=== PATIENT | female | born 2005 | race Asian ===

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

== ENCOUNTER 2024-07-31 11:13 | Emergency (ER) | payer OTHER, SELFPAY ==
[2024-07-31 11:17] VITALS: BP 107/65; PULSE 75; RESP 16; TEMP 36.9; O2SAT 98; BMI 23.6
--- NOTE | 2024-07-31 12:48 | ED.BACK ---
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 She is feeling it in the lower lumbar area, is feeling it in the right buttock area but is not going down her leg. She has no bowel or bladder loss of control. No weakness in her legs at this time, no numbness tingling. Over mid term break she did do camping in [place], went sledding. She was carrying a heavy pack which she thinks aggravated her back. There was no trauma. She has had no fevers. She was on a study abroad last July where she was diagnosed with herniated lumbar disc in career. She thinks they may be did both x-rays and lumbar spine. They told her to not carry a heavy backpack, stated that it would heal with time. She did get some pain medicine and slowly improved. She notes pain is problematic with sitting prolonged in class. She has not taken anything, sleep is okay. She states that there is no chance for . Related Data Previous Rx's ?Medication ?Instructions ?Recorded prednisone 20 mg tablet 20 mg PO BID #10 tabs 07/31/24 Allergies Allergy/AdvReac Type Severity Reaction Status Date / Time No Known Drug Allergies Allergy Verified 07/31/24 11:21 Review of Systems Narrative: As per HPI. PFSH PFS Social History Smoking Status: Never smoker Do you use any of these nicotine containing products: None Second hand tobacco smoke exposure: No How often do you have a drink containing alcohol: never How often do you have six or more drinks on one occasion: Never AUDIT-C Alcohol total score: 0 Non-prescribed substance use: denies use service: No Exam Const: Vital Signs, click to edit/add: Vital Signs - 24 hr 07/31/24 11:17 Temperature 98.4 F Pulse Rate [Pulse Oximeter] 75 Respiratory Rate 16 Blood Pressure [Ri ght Upper Arm] 107/65 Pulse Oximetry 98 Oxygen Delivery Me thod Room Air This 18-year-old female is alert, interactive, no apparent distress. She is seeing exam room for. She has no midline tenderness over back, no appreciable rash. There is some bilateral lower lumbar paraspinous tenderness but feel no masses feel no abnormality other than the discomfort. She has some right sciatic notch tenderness in the gluteus. Strength is 5/5 and symmetric throughout the hips, knees, ankles and toes. She has 1 to 2+ DTRs patellas, could not get Achilles. Strength and sensation is normal and symmetrical throughout both lower extremities. Negative straight leg raising. Gait is normal. Documenting provider has reviewed patient's vital signs: yes Course Course ED Course: Have reviewed with patient relative rest. This certainly sounds like a low back issue, she does not have diagnostic features for sciatica. Presumably she is just aggravated prior injury. We discussed relative rest, trial of prednisone for anti-inflammatory effect. She is declining any muscle relaxant. Have discussed with her my recommendation for physical therapy, she would like to try back exercises, she did not do any before. I will give her some handouts with exercises, she is instructed to do those that are not aggravating her back more. She can graduate into more of these as she feels better. We discussed warning signs and symptoms for radiculopathy, need to return for evaluation and consideration of MRI. At this point, MRI is not indicated and course of conservative management should be tried. Vital Signs Vital signs: Initial Vital Signs Temperature 98.4 F 07/31/24 11:17 Temperature Source Temporal Artery Scan 07/31/24 11:17 Pulse Rate 75 07/31/24 11:17 Respiratory Rate 16 07/31/24 11:17 Blood Pressure 107/65 07/31/24 11:17 Blood Pressure Mean 79 07/31/24 11:17 Blood Pressure Position Sitting 07/31/24 11:17 Pulse Oximetry 98 07/31/24 11:17 Oxygen Delivery Method Room Air 07/31/24 11:17 Vital Signs Temperature 98.4 F 07/31/24 11:17 Pulse Rate 75 07/31/24 11:17 Respiratory Rate 16 07/31/24 11:17 Blood Pressure 107/65 07/31/24 11:17 Pulse Oximetry 98 07/31/24 11:17 Oxygen Delivery Method Room Air 07/31/24 11:17 Temperature 98.4 F 07/31/24 11:17 Pulse Rate 75 07/31/24 11:17 Respiratory Rate 16 07/31/24 11:17 Blood Pressure 107/65 07/31/24 11:17 Pulse Oximetry 98 07/31/24 11:17 Oxygen Delivery Method Room Air 07/31/24 11:17 Discharge Plan Discharge Clinical Impression: Strain of lumbar region Patient Disposition: Home, Self-Care Condition: Stable Instructions: Low Back Strain (ED), Lower Back Exercises (ED), Core Strengthening Exercises (ED) Additional Instructions: Id is for relative rest, sitting can be the hardest on the spine. Do not recommend any significant position for any length of time right now. Try a to even stand up in class for few moments after sitting for a while. Can use ice or heat on your low back, use whichever works better. Prednisone has been prescribed which is an anti-inflammatory, take with food to helped protect your stomach from irritation from the medicine. Can still use Tylenol and ibuprofen per bottle directions if needed for pain management. If you develop loss of bowel or bladder control, developed motor weakness in your leg(s), do recommend re-evaluation. I have provided exercises to try, can start these but utilize the ones that do not increase your pain. May want to consider referral to physical therapy if you have ongoing issues. Activity Level: Activity as Tolerated Prescriptions: New prednisone 20 mg tablet 20 mg PO BID Qty: 10 0RF Follow Up/Referrals: Provider,Not a Local [Primary Care Provider] - Stand Alone Forms: [facility] Info Instructions
--- OUTSIDE RECORDS SUMMARY | 2024-07-31 14:30 | XMS_ITS | Data Portability ---
Author Organization [place] - [facility], [employer] [place] Address [address] [place] [address] Assessment No assessment recorded. Plan of Treatment Reminders Order Date Submit Date Provider Last Modified By Organization Details Last Modified Time Details Appointments None recorded. Lab SARS CoV 2 RNA (COVID-19), QL, bridge builder-PCR, respiratory specimen 2021 022 [facility], [address] [place], [address], 2 02:12:58 Referral None recorded. Procedures None recorded. Surgeries None recorded. Imaging None recorded. Medication Orders Malarone 250 mg-100 mg tablet 2022 023 [facility][id number], [address] [place], [address], 3 17:44:57 mefloquine 250 mg tablet 2022 023 [facility][id number], [address] [place], [address], 3 17:21:09 Patient TargetsNo targets recorded. Patient Instructions Encounter Date Encounter Id Patient Instructions Last Modified By Organization Details Last Modified Time 12/16/2021 [id number] A healthy lifestyle: care instructions [email or web address] Not available 12/16/2021 19:31:55 Thank you for visiting [facility]. There are two ways to view your lab results: : 1. The Skig[employer] mary kay is available to all patients 18 and older in the [employer] Store and [employer] Play. First-time mary kay users will need to create an account; please note you ll need to select a login and password for the mary kay versus just using your patient portal login credentials. Your lab results will be posted to the Skig[employer] mary kay as soon as they re available. 2. Via email , as soon as lab results are available. If you don t receive an email within the estimated time frame, give our Aftercare team a call at [phone]. You can check select lab results online at the [facility] PATIENT PORTAL. If your labs go through [facility] you will not be able to utilize the patient portal. You will be called by our Aftercare Department with your results regardless if they are positive or negative. Please note that because normal results automatically publish to the portal, these results are not always reviewed by [facility] clinicians before publishing. Some abnormal results are also published on the patient portal following review. The [facility] Aftercare Department will often first try to call you and discuss these results before publishing. Please review the Notes section at the bottom of your lab results for more information to help in understanding your results. If your lab results are normal, a link to a guide is available below that answers questions about some of our most common labs: Throat Culture, Urine Culture, Routine Panel, STI panel without HIV and HSV, HIV, Herpes (HSV) Screen, Dysuria Panel, Lyme, Tick Panel, H. Pylori. Go to: [email or web address] -interpretation If you have not spoken to a [facility] staff member about abnormal lab results, or if your testing does not fall into the above categories, please call our Aftercare department at [phone] so that we can discuss your results with you. Please remember that all lab results are best interpreted with your specific situation in mind. fau Not available 12/16/2021 16:40:46 05/24/2023 [id number] A healthy lifestyle: care instructions [email or web address] Not available 05/24/2023 19:36:32 Thank you for visiting [facility]. We may be calling you to review your lab results or schedule a follow up appointment. The call will be through an automated system which asks you to press a werner to speak with one of our agents. Please be on the lookout for this call and listen to the message in its entirety. You may also view your lab results using the Skigit mary kay, available in the [employer] Store and [employer]. First-time mary kay users will need to create an account; please note you ll need to select a login and password for the mary kay versus just using your patient portal login. Your lab results will be posted to the Skig[employer] mary kay as soon as they re available. If you have any questions regarding your visit, our Aftercare department can be reached at [phone]. Our hours are Sunday from 8 am 11 pm or from 9a 8p. [email or web address] Not available 05/24/2023 17:39:57 05/31/2023 [id number] Thank you for visiting [facility]. We may be calling you to review your lab results or schedule a follow up appointment. The call will be through an automated system which asks you to press a werner to speak with one of our agents. Please be on the lookout for this call and listen to the message in its entirety. You may also view your lab results using the Skigit mary kay, available in the [employer] Store and [employer]. First-time mary kay users will need to create an account; please note you ll need to select a login and password for the mary kay versus just using your patient portal login. Your lab results will be posted to the Skigit mary kay as soon as they re available. If you have any questions regarding your visit, our Aftercare department can be reached at [phone]. Our hours are Sunday from 8 am 11 pm or from 9a 8p. fau Not available 05/31/2023 17:14:39 Reason for Referral None Reported. Results Created Date Observation Date Name Description Value Unit Range Abnormal Flag Note LastModifiedBy Organization Detail LastModifiedTime 12/17/19 22 12/18/2021 SARS COV 2 RT-PC R sars-cov-2, ANNABELLE NOT DETECT ED not detect ed normal This nucle ic acid ampli ficat ion test was devel oped and its perfo rmanc e saida cteri stics deter mined by [facility] at[facility] es. Nucle ic acid ampli ficat ion tests inclu de RT-PC R and TMA. This test has not been FDA clear ed or appro dom. This test has been autho rized by FDA under an Emerg ency Use Autho rizat ion (EUA) . This test is only autho rized for the durat ion of time the decla ratio n that circu mstan floyd exist justi fying the autho rizat ion of the emerg ency use of in vitro diagn ostic tests for detec tion of SARS- CoV-2 virus and/o r diagn osis of COVID -19 infec tion under secti on 564(b )(1) of the Act, 21 U.S.C . 360bb b-3(b ) (1), unles s the autho rizat ion is termi nated or revok ed soone r. When diagn ostic testi ng is negat chato, the possi bilit y of a false negat chato resul t shoul d be consi dered in the janell xt of a patie nt's recen t expos ures and the prese nce of clini elizabeth signs and sympt oms consi stent with COVID -19. An indiv idual witho ut sympt oms of COVID -19 and who is not robinson ing SARS- CoV-2 virus would expec t to have a negat chato (not detec devonte) resul t in this assay . Not Available [facility] [address] [place], [address], 12/18/2021 02:12:58 12/17/19 22 12/18/2021 SARS COV 2 RT-PC R sars-cov-2, ANNABELLE 2 day tat PERFOR MED normal Not Available [facility] [address] [place], [address], 12/18/2021 02:12:58 Result Notes None recorded. Problems No Known Problems Medical Equipment None Reported. Allergies No known drug allergies Medications Name Sig Start Date Stop Date Status Note LastModified by Organization Details LastModified Time Malarone 250 mg-100 mg tablet Take 1 tablet every day by oral route. 12/14/2 023 active Not Available Not Available Not Avai lable Vitals Date Recorded Respiratory rate Body height Body mass index (BMI) Percentile per age and sex Body mass index (BMI) Body weight Heart rate Body temperature Oxygen saturation Oxygen saturation in Arterial blood by Pulse oximetry Systolic blood pressure Diastolic blood pressure Provider Name and Address Organization Details Last Updated DateTime 2 16 /min 165.1 cm 52 % 21.5 kg/m2 84219.4 2 g 99 /min 98.6 [degF] 98 % 98 % 112 mm[Hg] 70 mm[Hg] [address] - [facility] 2 16:39:58 Date Recorded Oxygen saturation Oxygen saturation in Arterial blood by Pulse oximetry Respiratory rate Body temperature Body height Body mass index (BMI) Percentile per age and sex Body mass index (BMI) Body weight Heart rate Systolic blood pressure Diastolic blood pressure Provider Name and Address Organization Details Last Updated DateTime 3 98 % 98 % 16 /min 98 [degF] 163.83 cm 68 % 23.4 kg/m2 54402.9 g 79 /min 111 mm[Hg] 60 mm[Hg] [address] - [facility] 3 17:47:42 Date Recorded Body height Respiratory rate Heart rate Body temperature Body mass index (BMI) Percentile per age and sex Body mass index (BMI) Body weight Oxygen saturation Oxygen saturation in Arterial blood by Pulse oximetry Systolic blood pressure Diastolic blood pressure Provider Name and Address Organization Details Last Updated DateTime 3 165.1 cm 16 /min 93 /min 99.4 [degF] 45 % 21.3 kg/m2 07518.8 2 g 98 % 98 % 116 mm[Hg] 79 mm[Hg] [address] - [facility] 3 17:20:39 Social History Question Answer Notes LastModified by Organizat ion Details LastModified Time Tobacco Smoking Status Never Smoker DOMINGO Butler - [facility] 12/16/2021 16:39:42 RISK LEVEL - Segmentation Level 1 - Healthy [id number] Information not available 01/17/2022 What Was The Date Of Your Most Recent Tobacco Screening? 05/31/2023 fau Information not available 05/31/2023 Sex: Unknown Functional Status None recorded. Mental Status None recorded. Family History Relationship Description Onset Age of this Age Resolved Age Notes LastModified by Organization Details LastModified Time Father No current problems or disability fau Not available 12/16 16:39:38 Mother No current problems or disability fau Not available 12/16 16:39:38 Medical History No medical history recorded. Gynecological HistoryNo gynecological history recorded. Obstetrics History GPAL:G 0 P 0 0 0 0 Immunizations Vaccine Type Date Status Note Provider Nam e and Address Organization Details Recorded Time meningococcal B, OMV 1 completed Genevieve Au null, [place] - [facility] 05/24/2023 17:50:46 meningococcal B, OMV 1 completed Genevieve Au null, [place] - [facility] 05/24/2023 17:50:46 HPV9 8 completed Genevieve Au null, [place] - [facility] 05/24/2023 17:50:46 HPV9 8 completed Genevieve Au null, [place] - [facility] 05/24/2023 17:50:46 IPV 5 completed Genevieve Au null, [place] - [facility] 05/24/2023 17:50:46 IPV 4 completed Genevieve Au null, [place] - [facility] 05/24/2023 17:50:46 IPV 5 completed Genevieve Au null, [place] - [facility] 05/24/2023 17:50:46 MMR 8 completed Egnevieve Au null, [place] - [facility] 05/24/2023 17:50:46 MMR 5 completed Genevieve Au null, [place] - [facility] 05/24/2023 17:50:46 COVID-19, mRNA, LNP-S, PF, 30 mcg/0.3 mL dose 2 completed Genevieve Au null, [place] - [facility] 05/24/2023 17:50:46 COVID-19, mRNA, LNP-S, PF, 30 mcg/0.3 mL dose 1 completed Genevieve Au null, [place] - [facility] 05/24/2023 17:50:46 COVID-19, mRNA, LNP-S, PF, 30 mcg/0.3 mL dose 1 completed Genevieve Au null, [place] - [facility] 05/24/2023 17:50:46 pneumococcal conjugate PCV 7 4 completed Genevieve Au null, [place] - [facility] 05/24/2023 17:50:46 pneumococcal conjugate PCV 7 5 completed Genevieve Au null, [place] - [facility] 05/24/2023 17:50:46 pneumococcal conjugate PCV 7 4 completed Genevieve Au null, [place] - [facility] 05/24/2023 17:50:46 pneumococcal conjugate PCV 7 4 completed Genevieve Au null[place] - [facility] 05/24/2023 17:50:46 Tdap 5 completed Genevieve Au null[place] - [facility] 05/24/2023 17:50:46 varicella 8 completed Genevieve Au null[place] - [facility] 05/24/2023 17:50:46 varicella 5 completed Genevieve Au null[place] - [facility] 05/24/2023 17:50:46 Hep B, unspecified formulation 4 completed Genevieve Au null[place] - [facility] 05/24/2023 17:50:46 Hep B, unspecified formulation 4 completed Genevieve Au null, [place] - [facility] 05/24/2023 17:50:46 pertussis 4 completed Genevieve [place] null[place] - [facility] 05/24/2023 17:50:46 polio, unspecified formulation 4 completed Genevieve [place] null[place] - [facility] 05/24/2023 17:50:46 Influenza, split virus, trivalent, preservative 2 completed Genevieve Au null, [place] - [facility] 05/24/2023 17:50:46 influenza, split (incl. purified surface antigen) 9 completed Genevieve Au null, [place] - [facility] 05/24/2023 17:50:46 influenza, split (incl. purified surface antigen) 4 completed Genevieve [place] null, [place] - [facility] 05/24/2023 17:50:46 influenza, split (incl. purified surface antigen) 5 completed Genevieve [place] null, [place] - [facility] 05/24/2023 17:50:46 influenza, split (incl. purified surface antigen) 4 completed Genevieve [place] null, [place] - [facility] 05/24/2023 17:50:46 Novel [id number], nasal 9 completed Genevieve [place] null, [place] - [facility] 05/24/2023 17:50:46 Hep B, adolescent or pediatric 4 completed Genevieve [place] null, [place] - [facility] 05/24/2023 17:50:46 Hep B, adolescent or pediatric 8 completed Genevieve [place] null, [place] - [facility] 05/24/2023 17:50:46 Hep B, adolescent or pediatric 8 completed Gen[place]ieve [place] null[place] - [facility] 05/24/2023 17:50:46 Hep B, adolescent or pediatric 8 completed Genevieve [place] null[place] - [facility] 05/24/2023 17:50:46 Hep A, ped/adol, 2 dose 8 completed Genevieve [place] null[place] - [facility] 05/24/2023 17:50:46 Hep A, ped/adol, 2 dose 9 completed Genevieve Au null, [place] - [facility] 05/24/2023 17:50:46 Hib (HbOC) 4 completed Genevieve Au null, [place] - [facility] 05/24/2023 17:50:46 Hib (HbOC) 5 completed Genevieve Au null, [place] - [facility] 05/24/2023 17:50:46 Hib (HbOC) 4 completed Genevieve Au null, [place] - [facility] 05/24/2023 17:50:46 Hib (HbOC) 4 completed Genevieve Au null, [place] - [facility] 05/24/2023 17:50:46 meningococcal MCV4P 5 completed Genevieve Au null[place] - [facility] 05/24/2023 17:50:46 meningococcal MCV4P 0 completed Genevieve [place] null[place] - [facility] 05/24/2023 17:50:46 DTaP 4 completed Gen[place] null[place] - [facility] 05/24/2023 17:50:46 DTaP 5 completed Genevieve [place] null[place] - [facility] 05/24/2023 17:50:46 DTaP, 5 pertussis antigens 9 completed Genevieve [place] null[place] - [facility] 05/24/2023 17:50:46 DTaP, unspecified formulation 4 completed Genevieve [place] null[place] - [facility] 05/24/2023 17:50:47 DTaP-Hep B-IPV 4 completed Genevieve [place] null, [place] - [facility] 05/24/2023 17:50:47 Influenza, split virus, quadrivalent, PF 5 completed Genevieve [place] null, [place] - [facility] 05/24/2023 17:50:47 Influenza, split virus, quadrivalent, PF 8 completed Genevieve [place] null, [place] - [facility] 05/24/2023 17:50:47 Past Encounters Encounter ID Performer Location Encounter Start Date Encounter Closed Date Diagnosis/Indication Diagnosis SNOMED-CT Code Diagnosis ICD10 Code Diagnosis Note [id number] Amanda Solis MD [facility] [address] [place] [address] 12/16/2021 16:19:28 12/16/2021 16:41:24 Exposure to SARS-CoV-2 363567774 Z20.822 [id number] Polo Sheldon MD [facility] [address] [place] [address] 05/24/2023 17:19:47 05/24/2023 18:22:44 Medical counseling 651265918 Z71.84 Typhoid prophylaxi s; ADVISED TO START MED 2 WEEKS BEFORE TRIP ONSET. PAMELA Patient ad vised about anti-malaria prophylaxis 523998899 Z71.89 ADVISED TO COMPLETE COURSE 1 WEEK BEFORE TRAVEL. EE [id number] Polo Sheldon MD [facility] [address] [place] [address] 05/31/2023 17:13:27 05/31/2023 17:47:39 Patient advised about anti-malaria prophylaxis 176446204 Z71.89 Health Concerns Section Related Observation LastModified by Organization Detai ls LastModified Time None Recorded Concern Status LastModified by Organization Details LastModified Time None Recorded Advance Directives Directive None Recorded Payers Encounter Date Sequence Insurance Name Policy Number Policy Bassett Covered Member ID Bassett Member ID Guarantor Name 12/16/2021 1 [facility] - H[facility]) [id number] Rosa Elena Cruz [id number] Rosa Elena Cruz 05/24/2023 1 [facility] (MEDICAID REPLACEMENT - HMO) [id number] Rosa Elena Cruz [id number] Rosa Elena Cruz 05/31/2023 1 [facility] (MEDICAID REPLACEMENT - HMO) [id number] Rosa Elena Cruz [id number] Rosa Elena Cruz Notes Date Note Type Note Provider Name and Address Organization Details Recorded Time 12/16/2021 text/html COVID-19 VISIT - cmdReported bypatient.Patient presents forCOVID-19 VISIT; secondary exposure to +COVID 1 week ago Pertinent findings:No symptoms; No fever; NO body aches; NO sore throat; NO nasal symptoms; No cough; No CP; No leg swelling; No neurologic deficits; No SOB COVID vaccination status:(+) COVID Vaccination Pfizer and HAS been > 2 weeks since the FINAL scheduled dose;Received BOOSTER Pfizer Amanda Solis MD [address] [place] [address],[address] [facility], [place], [address], [facility] - [facility] 12/16/2021 19:03:03 05/24/2023 text/html Generic Complain t - cmdReported bypatient.Patient presents with:Pt presents asymptomatic and requests general consult and travel advice to STUDY IN [place] IN JUN 2023 and [facility] JUL TO August. DENIES ANY COMPLAINTS. NO COUGH, SOB, CP. Pertinent findings:No headache; No cough; No fever; No chills; No nausea; No vomiting; No abdominal pain; No dysuria Polo Sheldon MD [facility],[address] [place] [address], [place], [address], [facility] - 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 Polo Sheldon MD [facility],[address] [facility], [place], [address], [facility] - [facility] 05/31/2023 17:46:23 OBGyn Episode No OBEpisode recorded.
== END 2024-07-31 13:44 | disposition home or self-care (01) ==
LOC: ED 13:30
PROVIDERS: Emergency Provider Family Medicine
DX: S39.012A Strain of muscle, fascia and tendon of lower back, initial encounter (principal)
CPT/HCPCS: 99283